=== PATIENT | female | born 1950 | race Caucasian/White ===

== ENCOUNTER → 2023-02-08 | Outpatient (CLI) | payer MEDICARE, SELFPAY ==
--- NOTE | 2023-02-08 13:48 | CT_ITS ---
INDICATION: LUNG CA EXAMINATION: CT CHEST WITH CONTRAST - CT Chest W/ Contrast Injection TECHNIQUE: Helically acquired images were obtained of the chest following IV contrast. A radiation dose optimization technique was used for this scan. IV Contrast dosage and agent: RADIATION DOSAGE (If Supplied By Facility): CTDIvol = ( 14.38 ) mGy, DLP = ( 719.02 ) mGycm COMPARISON: FINDINGS: Bilateral breast implants. LUNGS, PLEURA AND LARGE AIRWAYS: Mild fibrosis anterior medial right middle lobe. Minimal bibasilar fibrosis. There is a subpleural lipoma adjacent to the posterior basilar segment of the right lower lobe measuring 5.2 cm transverse by 1.2 cm AP. THYROID: No thyroid lesions. HEART AND PERICARDIUM: Dense atherosclerotic vascular calcification and/or stent LAD. Heart size is normal. No pericardial effusion. VESSELS: Thoracic aorta is not dilated. No aortic dissection. No obvious central pulmonary embolism although this study was not performed with the pulmonary embolism protocol. MEDIASTINUM AND CEASAR: No mediastinal or hilar adenopathy. Esophagus is unremarkable. No hiatal hernia. UPPER ABDOMEN: Portion of the kidneys demonstrates at least mild cortical thinning of both kidneys which could be due to scarring and/or renovascular disease. BONES: T9 demonstrates intraosseous hemangioma within the left two thirds of the vertebral body measuring 2.74 cm transverse. Moderate degenerative disc disease and spondylosis mid and lower thoracic spine. CT/Chest WITH Contrast IMPRESSION: Bilateral breast implants. Pulmonary fibrosis detailed above. Subpleural lipoma posterior right hemithorax. Bilateral breast implants. Stent and/or atherosclerotic vascular calcification LAD. Hemangioma T9 vertebral body. Degenerative changes of the thoracic spine. Cortical thinning of the imaged portion of the kidneys. Electronically Signed: Asif Looney MD, [facility] at 23:02 EDT ,
[2023-02-08 14:15] LABS: CREATININE FINGERSTICK 1.1 mg/dL (0.55-1.02)
== END | disposition home or self-care (01) ==
LOC: CT 13:45
PROVIDERS: Referring Provider Nurse Practitioner Family; Visit Provider Nurse Practitioner Family
DX: D38.1 Neoplasm of uncertain behavior of trachea, bronchus and lung (principal); R39.89 Other symptoms and signs involving the genitourinary system
CPT/HCPCS: 71260; Q9967

== ENCOUNTER → 2023-02-23 | Outpatient (CLI) | payer MEDICARE, SELFPAY ==
--- NOTE | 2023-02-23 14:52 | RAD_ITS ---
STUDY: X-RAY CHEST REASON FOR EXAM: Female, 72 years old. Pulmonary fibrosis TECHNIQUE: PA and lateral views of the chest. COMPARISON: None. FINDINGS: There are interstitial fibrotic changes of the lungs. Hyperinflation. Decrease bronchovascular markings in the upper lobes suggestive of emphysematous change. There is no demonstrated pleural abnormality. Normal size heart. Normal mediastinum and shonda. Normal visualized pulmonary arteries. There is atherosclerotic tortuosity of the aortic arch and descending thoracic aorta. There are diffuse degenerative changes of the visualized thoracic spine. Normal visualized ribs, clavicles, and shoulders. There is no demonstrated abnormality of the visualized soft tissue structures of the upper abdomen. RAD/Chest PA and Lateral IMPRESSION: Hyperinflation. Findings suggestive of a emphysema in the upper lobes. Increased markings in the lung bases suggestive of scarring. Electronically Signed: Niko Blackman MD at 14:46 EDT ,
== END | disposition home or self-care (01) ==
LOC: RAD 14:51
PROVIDERS: Referring Provider Internal Medicine; Visit Provider Internal Medicine
DX: J84.10 Pulmonary fibrosis, unspecified (principal); R91.8 Other nonspecific abnormal finding of lung field
CPT/HCPCS: 71046